=== PATIENT | male | born 1995 | race Two or more races ===

== ENCOUNTER 2024-03-25 13:34 | Emergency (ER) | payer SELFPAY ==
[2024-03-25] MEDS: Benzocaine 20% Topical Spray UD MUCMEM ONE (14:36)
[2024-03-25] MEDS: Lidocaine 2% Viscous Solution 15 ML UD PO ONE (14:36)
[2024-03-25] MEDS: Amoxicillin/Clavulanate K 875-125 MG Tab PO ONE (14:37)
== END 2024-03-25 14:40 | disposition home or self-care (01) ==
LOC: MW.ED 13:34
DX: K08.89 Other specified disorders of teeth and supporting structures (principal); Z79.2 Long term (current) use of antibiotics; Z79.899 Other long term (current) drug therapy; Z75.8 Other problems related to medical facilities and other health care
CPT/HCPCS: 99282; A9270

== ENCOUNTER 2024-11-02 13:52 | Emergency (ER) | payer MEDICAID | END 2024-11-02 16:33 | disposition home or self-care (01) | LOC: MW.ED 13:52 | DX: S46.912A Strain of unspecified muscle, fascia and tendon at shoulder and upper arm level, left arm, initial encounter (principal); Z79.899 Other long term (current) drug therapy; X50.0XXA Overexertion from strenuous movement or load, initial encounter | CPT/HCPCS: 73000-26-LT; 73000-LT; 73030-26-LT; 73030-LT; 99282; 99283 ==

== ENCOUNTER 2025-03-06 16:30 | Emergency (ER) | payer OTHER | END 2025-03-06 17:41 | disposition home or self-care (01) | LOC: MW.ED 16:30 | DX: S49.91XA Unspecified injury of right shoulder and upper arm, initial encounter (principal); X50.0XXA Overexertion from strenuous movement or load, initial encounter | CPT/HCPCS: 73030-26-RT; 73030-RT; 99283 ==

== ENCOUNTER 2025-04-05 11:08 | Emergency (ER) | payer OTHER | END 2025-04-05 12:41 | disposition home or self-care (01) | LOC: MW.ED 11:08 | DX: S46.911A Strain of unspecified muscle, fascia and tendon at shoulder and upper arm level, right arm, initial encounter (principal); W18.39XA Other fall on same level, initial encounter; Y93.89 Activity, other specified | CPT/HCPCS: 99283 ==